=== PATIENT | male | born 1965 | race Caucasian/White ===

== ENCOUNTER 2018-01-29 10:43 | Inpatient (IN) | payer MEDICARE, OTHER ==
[~2018-01-29] VITALS: Ht 185.4 cm; Wt 95.3 kg
[~2018-01-29 10:43] MED LIST: ALBU2.5V11 MC; ALPR2TAB2 PO; BP MED; HYDR1TAB PO; METH40TA PO
--- NOTE | 2018-01-29 10:43 | NUR ---
BB RA 39 FROM DIALYSIS 15 MINS THEN C/O ABD DISTENTION HX ASCITES CHRONIC LIVER DISEASES HEP C. SATING HIGH 80'S ON RA PLACED ON 2 LPM VIA NC NOW SATING 99. PT HAS RCW DIALYSIS CATHETER. RECENT PICC LINE REMOVAL ON JESUS ALBERTO. ON URINARY CATHETER DRAINING YELLOW URINE THRU GRAVITY. C/O OF RT HIP AND RT LEG PAIN HX RECURRENT HIP DISLOCATION.BLE EDEMA +3. PLACED ON MONITOR .GOWNED PT AWATING MD ORDER.
--- NOTE | 2018-01-29 11:18 | NUR ---
IV ACCESS STARTED. FACING CUTTING MACHINE OPERATOR AT FOR BLOOD DRAW.
[2018-01-29 11:26] LABS: BASOPHILS # (AUTO) 0.2 /CMM (0.0-0.2); BASOPHILS % (AUTO) 1.2 % (0.0-2.0); EOSINOPHILS % (AUTO) 17.4 % (0.0-6.0); HEMATOCRIT 34 % (39-51); HEMOGLOBIN 11.6 g/dL (13.5-17.5); LYMPHOCYTES # (AUTO) 1.3 /CMM (0.8-4.8); LYMPHOCYTES % (AUTO) 9.8 % (20.0-44.0); MEAN CORPUSCULAR HGB CONC 34 g/dl (31.0-36.0); MEAN CORPUSCULAR VOLUME 87 fL (80-96); MONOCYTES # (AUTO) 0.8 /CMM (0.1-1.30); MONOCYTES % (AUTO) 6.3 % (2.0-12.0); NEUTROPHILS # (AUTO) 8.8 /CMM (1.8-8.9); NEUTROPHILS % (AUTO) 65.3 % (43.0-81.0); PLATELET COUNT (AUTO) 149 /CMM (150-450); RDW COEFFICIENT OF VARIATION 15.2 (11.5-15.0); RED BLOOD CELL COUNT(AUTO) 3.89 MIL/uL (4.5-6.0); WHITE BLOOD COUNT (AUTO) 13.4 K/uL (4.3-11.0)
[2018-01-29] MEDS ORDERED: POLY17PO4 PO (11:27)
[2018-01-29] MEDS ORDERED: CETI-102 PO (11:27)
[2018-01-29] MEDS ORDERED: FAMO20TA8 PO (11:27)
[2018-01-29] MEDS ORDERED: FOLI0.8T23 PO (11:27)
[2018-01-29] MEDS ORDERED: NICO-676 TD (11:27)
[2018-01-29] MEDS ORDERED: DIPH25CA6 PO (11:27)
[2018-01-29] MEDS ORDERED: EPOE1VIA7 SQ (11:27)
[2018-01-29] MEDS ORDERED: ACET-868 PO (11:27)
[2018-01-29] MEDS ORDERED: MULT-24 PO (11:27)
[2018-01-29] MEDS ORDERED: DOCU-141 PO (11:27)
[2018-01-29] MEDS ORDERED: HYDR4TAB57 PO (11:27)
[2018-01-29] MEDS ORDERED: METH500T PO (11:27)
[2018-01-29] MEDS ORDERED: GABA-532 PO (11:27)
[2018-01-29] MEDS ORDERED: SEVE800T8 PO (11:27)
[2018-01-29] MEDS ORDERED: LACT10SO PO (11:27)
[2018-01-29] MEDS ORDERED: DIPH30CR TP (11:27)
[2018-01-29] MEDS ORDERED: ALPR0.255 PO (11:27)
[2018-01-29] MEDS ORDERED: MAG30ORA PO (11:27)
[2018-01-29 11:33] LABS: CARBON DIOXIDE 27 mmol/L (21-32); CHLORIDE 101 mmol/L (98-107); CREATININE 4.3 mg/dL (0.6-1.3); GLUCOSE 113 mg/dL (74-106); POTASSIUM 4.5 mmol/L (3.5-5.1); SODIUM SERUM 134 mmol/L (136-145); UREA NITROGEN, BLOOD 37 mg/dL (7-18)
[2018-01-29 11:37] LABS: INR 1.24 (0.85-1.15)
[2018-01-29 11:40] LABS: TROPONIN I < 0.017 ng/mL (0.00-0.056)
[2018-01-29 11:46] LABS: ALANINE AMINOTRANSFERASE 23 U/L (12-78); ALBUMIN 2.3 g/dL (3.4-5.0); ALKALINE PHOSPHATASE 128 U/L (46-116); ASPARTATE AMINOTRANSFERASE 36 U/L (15-37); B-TYPE NATRIURETIC PEPTIDE 966 PG/ML (0-125); BILIRUBIN,DIRECT 0.6 mg/dL (0.0-0.2); BILIRUBIN,TOTAL 1.1 mg/dL (0.2-1.0); TOTAL PROTEIN, SERUM 6.8 g/dL (6.4-8.2)
--- NOTE | 2018-01-29 12:06 | NUR ---
DR. Maura MCDANIELS AT BS.
--- NOTE | 2018-01-29 12:28 | NUR ---
REPORT GIVEN TO SARMAD WESTBROOK FOR TELE [id number]
[2018-01-29] MEDS ORDERED: LEVOFLOXACIN 500 MG /D5W 100ML 500 MG/100 ML PIGGYBACK IV ONE (12:30)
[2018-01-29] MEDS ORDERED: VANCOMYCIN 1 GM in IV D5W 250 ML IV ONE (12:30)
[2018-01-29] MEDS ORDERED: LEVOFLOXACIN 500 MG /D5W 100ML 100 ML IV ONE (12:32)
--- NOTE | 2018-01-29 12:40 | NUR ---
PT BROUGHT TO CT.
[2018-01-29] MEDS ORDERED: ONDANSETRON HCL/PF 4 MG/2 ML VIAL IVP PRN (13:00)
[2018-01-29] MEDS ORDERED: MAG HYDROX/AL HYDROX/SIMETH 30 ML UDC PO PRN (13:00)
[2018-01-29] MEDS ORDERED: HYDROMORPHONE INJ 2 MG/ML DISP.SYRIN IV PRN (13:00)
[2018-01-29] MEDS ORDERED: MAGNESIUM HYDROXIDE 30 ML UDC PO PRN (13:00)
[2018-01-29] MEDS ORDERED: ACETAMINOPHEN 325 MG TABLET PO PRN ×2 (13:00→13:30)
[2018-01-29 13:30] VITALS: BP 104/66
[2018-01-29] MEDS ORDERED: EPOETIN ALFA (10,000 UNIT) 10,000 UNIT/ML VIAL SQ SCH (13:30)
[2018-01-29] MEDS ORDERED: diphenhydrAMINE HCL/ZINC ACET CREAM 28.3 GM TUBE TP PRN (13:30)
[2018-01-29] MEDS ORDERED: LACTULOSE 10 G/15 ML UDC (PYXIS) PO PRN (13:30)
--- NOTE | 2018-01-29 13:45 | NUR ---
Tele/RN - Admission Patient awake, A/O x 3, denies abdominal pain, no evidence of resp. distress, on 2 lpm via NC, admitted for Sepsis under Dr. Reyes. Tele shows SR. Saline lock on the left hand is patent, intact, with no complications. Patient refused skin assessment at this time. Reeves catheter in place. All belongings verified and secured in the unit. Patient oriented to the unit and use of call light. All needs anticipated and met. Patient educated on the treatment plan. Admission orders noted and implemented. Fall precautions initiated. Will continue to monitor closely.
[2018-01-29] MEDS ORDERED: VANCOMYCIN 500 MG in IV D5W 100 ML IV PRN (14:00)
[2018-01-29] MEDS ORDERED: FEE PK DOSING 1 MIN EA MC ONE ×2 (14:11→19:54)
--- NOTE | 2018-01-29 16:00 | NUR ---
Tele/RN - Ortho consult Seen and examined by JORGE Gordon for right hip dislocation. Per records from [facility], pt developed septic right PAULINA which required explantation of hardware and implantation of an antibiotic spacer in November 2017. Information relayed to Gini.
[2018-01-29] MEDS: SEVELAMER CARBONATE 800 MG TABLET PO SCH (17:01)
[2018-01-29] MEDS: cetrizine 10 MG TABLET PO SCH (17:01)
[2018-01-29] MEDS: METHOCARBAMOL (500MG) 500 MG TABLET PO SCH (17:01)
[2018-01-29] MEDS: DOCUSATE SODIUM 100 MG CAPSULE PO SCH (17:01)
[2018-01-29] MEDS: ALPRAZOLAM 0.25 MG TABLET PO PRN (18:00)
--- NOTE | 2018-01-29 18:18 | NUR ---
Tele/RN - Notes No new events seen, remain afebrile, Xanax given once for anxiety, denies pain, no c/o SOB. Will endorse to night RN accordingly.
[2018-01-29 20:00] VITALS: BP 104/61
[2018-01-29] MEDS ORDERED: GENTAMICIN IV ONE (20:00)
[2018-01-29] MEDS ORDERED: D5W IV ONE (20:00)
--- NOTE | 2018-01-29 20:00 | NUR ---
tel rn initial notes received Patient awake, A/O x 3, denies abdominal pain, no evidence of resp. distress, c/o r-hip pain, 8/10 and insomia, prn fentanyl iv push and ambien given as ordered, on 2 lpm via NC. Tele shows SR. Saline lock on the left hand is patent, intact, with no complications. Patient refused skin assessment at this time, even after pain meds, insist on body assessment being done after break fast. Reeves catheter in place . Patient oriented to the unit and use of call light. All needs anticipated and met. Patient educated on the treatment plan. Fall precautions initiated. Will continue to monitor closely.
[2018-01-29] MEDS: TRIAMCINOLONE ACETONIDE 0.1% CR 15 GM TUBE TP SCH (21:17)
[2018-01-29] MEDS: GABAPENTIN 100 MG CAPSULE PO SCH (21:17)
[2018-01-29] MEDS: FENTANYL PF 100MCG/2ML AMPUL IV PRN (21:28)
[2018-01-29] MEDS: ZOLPIDEM TARTRATE 5 MG TABLET PO PRN (21:28)
[2018-01-30] VITALS: BP 100/55
--- NOTE | 2018-01-30 06:29 | NUR ---
RN TEL CLOSING NOTES PT AOX3 , ALL NEEDS MET, NON COMPLIANT WITH CARE, PT AWARE HE HAS WOUNDS, BUT STILL REFUSING FOR CARE, CLEANING AND FOR SKIN ASSESSMENT TO BE DONE, RISK AND BENEFIT EXPLAINED, OFFERED THROUGH SHIFT, INSISTS HE WANTS AFTER BREAK FAST. PRN MEDS GIVEN, SCARED OF POSSIBLE R-HIP FX. CALL WR, WILL ENDORSE TO AM SHIFT TO F/U. RECEIVED PT WITH NO SKIN ASSESSMENT D/T PT NOT BEING WILLING TO COMPLY.
--- NOTE | 2018-01-30 07:30 | NUR ---
ALTERNATIVE MEDICINE PRACTITIONER INITIAL NOTES PATIENT RESTING IN BED, AOX3, NO SIGNS OF DISTRESS ON 2L NC, SATURATING WELL, ON TELE MONITORING SR, FC TO GRAVITY, IV L HAND 22G, SL, CLEAN AND PATENT, HD ACCESS R CHEST WALL. PATIENT REFUSES WOUND PICTURES SINCE ADMISSION, BED IN LOW AND LOCKED POSITION CALL LIGHT WITHIN REACH, WILL CONTINUE TO MONITOR.
[2018-01-30 08:00] VITALS: BP 97/57
[2018-01-30] MEDS: NICOTINE PATCH (14MG) 14 MG PATCH.TD24 TD SCH (08:53)
[2018-01-30] MEDS: MULTIVITAMINS,THERAGRAN 1 UDTAB TABLET PO SCH (08:54)
[2018-01-30] MEDS: DOCUSATE SODIUM 100 MG CAPSULE PO SCH ×2 (08:54→17:12)
[2018-01-30] MEDS: PANTOPRAZOLE 40 MG TABLET.DR PO SCH (08:54)
[2018-01-30] MEDS: cetrizine 10 MG TABLET PO SCH ×2 (08:54→17:12)
[2018-01-30] MEDS: METHOCARBAMOL (500MG) 500 MG TABLET PO SCH ×3 (08:54→17:12)
[2018-01-30] MEDS: POLYETHYLENE GLYCOL 3350 17 GM POWD.PACK PO SCH (08:54)
[2018-01-30] MEDS: SEVELAMER CARBONATE 800 MG TABLET PO SCH ×3 (08:54→17:12)
[2018-01-30] MEDS: VIT B CMPLX 3/FA/VIT C/BIOTIN 1 TAB TABLET PO SCH (08:54)
[2018-01-30] MEDS ORDERED: GENTAMICIN 80 MG in IV D5W 50 ML IV PRN (09:00)
[2018-01-30] MEDS ORDERED: FAMOTIDINE (20 MG) 20 MG TABLET PO SCH (09:00)
[2018-01-30] MEDS: TRIAMCINOLONE ACETONIDE 0.1% CR 15 GM TUBE TP SCH ×3 (09:03→17:13)
[2018-01-30 11:25] LABS: BASOPHILS # (AUTO) 0.1 /CMM (0.0-0.2); BASOPHILS % (AUTO) 1.3 % (0.0-2.0); HEMATOCRIT 27 % (39-51); HEMOGLOBIN 9.1 g/dL (13.5-17.5); LYMPHOCYTES # (AUTO) 1.3 /CMM (0.8-4.8); LYMPHOCYTES % (AUTO) 14.9 % (20.0-44.0); MEAN CORPUSCULAR HGB CONC 34 g/dl (31.0-36.0); MEAN CORPUSCULAR VOLUME 87 fL (80-96); MONOCYTES # (AUTO) 0.9 /CMM (0.1-1.30); MONOCYTES % (AUTO) 9.6 % (2.0-12.0); NEUTROPHILS # (AUTO) 3.8 /CMM (1.8-8.9); NEUTROPHILS % (AUTO) 42.7 % (43.0-81.0); PLATELET COUNT (AUTO) 113 /CMM (150-450); RDW COEFFICIENT OF VARIATION 16.2 (11.5-15.0); RED BLOOD CELL COUNT(AUTO) 3.12 MIL/uL (4.5-6.0); WHITE BLOOD COUNT (AUTO) 8.9 K/uL (4.3-11.0)
[2018-01-30 11:28] LABS: EOSINOPHILS % (AUTO) 31.5 % (0.0-6.0)
[2018-01-30 11:39] LABS: CALCIUM, SERUM 7.3 mg/dL (8.5-10.1); CREATININE 4.6 mg/dL (0.6-1.3); PHOSPHORUS 3.6 mg/dL (2.5-4.9); POTASSIUM 4.6 mmol/L (3.5-5.1)
[2018-01-30 12:00] VITALS: BP 99/58
--- NOTE | 2018-01-30 12:00 | NUR ---
FISHING ROD MECHANIC NOTES PATIENT ALLOWED TO TAKE PICTURE OF SACRUM WHEN CLEANING, UNABLE TO TAKE FURTHER PICTURES DUE TO PAIN AND PATIENT REFUSING AND IRRITABLE.
[2018-01-30] MEDS ORDERED: LEVOFLOXACIN 250 MG /D5W 50 ML 250 MG in PREMIX 1 EA IV SCH (13:00)
[2018-01-30 13:14] LABS: EOSINOPHILS % (MANUAL) 38 % (0-4); LYMPHOCYTES % (MANUAL) 12 % (16-48); MONOCYTES % (MANUAL) 2 % (0-11.0); NEUTROPHILS % (MANUAL) 48 (42-76)
--- NOTE | 2018-01-30 13:19 | NUR ---
FIBERGLASS BONDING MACHINE TENDER NOTES PATIENT RECEIVING PARACENTESIS AT THIS TIME, PATIENT SEEN BY DR. MCDANIELS.
--- NOTE | 2018-01-30 14:00 | NUR ---
PARTS PULLER NOTES PER DR MCDANIELS PARACENTESIS FLUID TO BE DISCARDED AND NOT TO BE SENT TO LAB.
[2018-01-30] MEDS: ALPRAZOLAM 0.25 MG TABLET PO PRN ×2 (14:01→21:30)
[2018-01-30 16:00] VITALS: BP_SYST 185; BP_SYST 94; BP_DIAS 57; BP_DIAS 82
--- NOTE | 2018-01-30 18:23 | NUR ---
BULK SEALER OPERATOR END NOTES PATIENT RESTING IN BED, NO SIGNS OF DISTRESS ALL NEEDS ATTENDED TO, WILL ENDORSE TO LOGISTICS LEAD FOR CONTINUITY OF CARE.
--- NOTE | 2018-01-30 19:30 | NUR ---
MS/RN NOTES: RECEIVED PT. IN BED A/O X 3. DENIES ANY C/O CHEST PAIN OR SOB AT PRESENT. PT. IS ON O2 @ 2LPM VIA N/C SAT. 98%. HL ON LH G 22 PATENT AND INTACT W/ NO S/S OF INFECTION/INFILTRATION NOTED. HAS HD CATH ON RIGHT CHEST DRESSING INTACT. PT. REFUSED DIALYSIS TODAY. YEMI. FOR DIALYSIS FOR BRENDA. CALL LIGHT W/REACH. WILL CONTINUE TO MONITOR.
[2018-01-30 20:00] VITALS: BP 98/63
[2018-01-30] MEDS: MUPIROCIN OINT 2% 22 GM TUBE SCH ×2 (21:00→23:29)
[2018-01-30] MEDS: GABAPENTIN 100 MG CAPSULE PO SCH (21:30)
[2018-01-30] MEDS ORDERED: MUPIROCIN OINT 2% 22 GM TUBE ONE (23:08)
[2018-01-31] MEDS: diphenhydrAMINE HCL 25 MG CAPSULE PO PRN (02:58)
[2018-01-31 04:00] VITALS: BP_SYST 94; BP_DIAS 51; BP_DIAS 53
--- NOTE | 2018-01-31 07:12 | NUR ---
RN/MS NOTES: NO ACUTE CHANGES NOTED DURING THIS SHIFT. REPORT GIVEN TO AM NURSE FOR SRIDEVI.
--- NOTE | 2018-01-31 07:35 | NUR ---
MS RN NOTE: RECEIVED PATIENT IN BED, AWAKE, ALERT AND VERBALLY RESPONSIVE. RESPIRATION IS EVEN AND UNLABORED. ON O2 2L/MIN VIA NC SATURATING 96%. BED ON HIGH FOWLERS POSITION WHILE WATCHING TV. ON CONTACT ISOLATION FOR MRSA NARES. (L) HAND IV LINE NOTED PATENT AND INTACT. (R) CHEST HD CATH NOTED INTACT W/ DRESSING. MILLARD CATHETER IN PLACED W/ DARK YELLOW URINE DRAINING TO GRAVITY. PATIENT VERBALIZED THAT HE IS PLANNING TO GO HOME TODAY AND INFORMED HIM THAT ONCE THE DOCTOR MAKE ROUNDS TODAY HIS REQUEST WILL BE RELAYED TO THE DOCTOR. PATIENT VERBALIZED THAT HE DOES NOT WANT TO HAVE HEMODIALYSIS TODAY BECAUSE HE THINKS THAT IT WILL KILL HIM. EDUCATED THE PATIENT ABOUT THE IMPORTANCE OF HD IN ORDER TO REMOVE THE TOXICS ON HIS BODY. PATIENT STATED "LET ME THINK ABOUT IT." BED ALARM AND LOCKED AT ALL TIMES. CALL LIGHT WITHIN REACH. NEEDS ANTICIPATED.
[2018-01-31 08:00] VITALS: BP 97/48
[2018-01-31] MEDS: NICOTINE PATCH (14MG) 14 MG PATCH.TD24 TD SCH (08:10)
[2018-01-31] MEDS: PANTOPRAZOLE 40 MG TABLET.DR PO SCH (08:10)
[2018-01-31] MEDS: DOCUSATE SODIUM 100 MG CAPSULE PO SCH ×2 (08:10→16:04)
[2018-01-31] MEDS: VIT B CMPLX 3/FA/VIT C/BIOTIN 1 TAB TABLET PO SCH (08:10)
[2018-01-31] MEDS: SEVELAMER CARBONATE 800 MG TABLET PO SCH ×3 (08:10→17:21)
[2018-01-31] MEDS: MULTIVITAMINS,THERAGRAN 1 UDTAB TABLET PO SCH (08:11)
[2018-01-31] MEDS: cetrizine 10 MG TABLET PO SCH (08:11)
[2018-01-31] MEDS: METHOCARBAMOL (500MG) 500 MG TABLET PO SCH ×3 (08:11→16:04)
[2018-01-31] MEDS: MUPIROCIN OINT 2% 22 GM TUBE SCH ×2 (08:14→21:16)
[2018-01-31] MEDS: POLYETHYLENE GLYCOL 3350 17 GM POWD.PACK PO SCH (08:15)
[2018-01-31] MEDS: TRIAMCINOLONE ACETONIDE 0.1% CR 15 GM TUBE TP SCH ×3 (08:15→16:05)
[2018-01-31] MEDS: FENTANYL PF 100MCG/2ML AMPUL IV PRN ×2 (08:34→14:00)
--- NOTE | 2018-01-31 08:34 | NUR ---
MS RN NOTE: PATIENT VERBALIZED THAT HE HAS ACHING PAIN ON HIS (B) HIPS AND LOWER BACK 05/29. PATIENT REQUESTED FOR A PAIN MEDICATION. FENTANYL ORDERED WAS GIVEN. BP= 101/60, HR=80, RR= 20, SPO2 W/ O2 2L/MIN VIA NC= 96%.
[2018-01-31] MEDS: ALPRAZOLAM 0.25 MG TABLET PO PRN (13:27)
[2018-01-31 14:00] VITALS: BP 100/55
[2018-01-31] MEDS ORDERED: LACTULOSE 10 G/15 ML UDC (PYXIS) PO PRN (14:00)
--- NOTE | 2018-01-31 15:00 | NUR ---
MS RN NOTE: PATIENT WAS TRIED TO HAVE DIALYSIS TODAY. DR. MCDANIELS WAS PRESENT AT THE BEDSIDE. TORRES, HD NURSE STARTED THE HD AT 1330 AND ENDED AT 1400. PATIENT DID NOT TOLERATE THE HD. LOW BP AND DESATURATING UP TO 88% IN O2 2L/MIN VIA NC. DR. MCDANIELS AWARE ABOUT THE HEMODIALYSIS BEING STOPPED. PER TORRES, PATIENT HAS +2000 ML OF FLUID ON HIS BODY. PER DR. MCDANIELS, HE IS PLANNING TO REMOVE THE (R) CHEST HD CATH BY TOMORROW. WILL ENDORSE IT TO PM SHIFT NURSE.
[2018-01-31 16:00] VITALS: BP 100/55
[2018-01-31] MEDS: LACTOBACILLUS RHAMNOSUS GG 1 EACH CAP.SPRINK PO SCH (16:04)
--- NOTE | 2018-01-31 19:30 | NUR ---
MS/RN NOTES: RECEIVED PT. IN BED A/O X 3. DENIES ANY C/O CHEST PAIN OR SOB AT PRESENT. PT. IS ON O2 @ 2LPM VIA N/C SAT. 98 %. HL ON LH G 22 PATENT AND INTACT W/ NO S/S OF INFECTION/INFILTRATION NOTED. HAS HD CATH ON RIGHT CHEST DRESSING INTACT. CALL LIGHT W/REACH. WILL CONTINUE TO MONITOR.
--- NOTE | 2018-01-31 19:50 | NUR ---
MS RN NOTE: PATIENT IN BED, AWAKE AND ABLE TO VERBALIZE HIS NEEDS. ON STABLE CONDITION AT THIS TIME. DENIED PAIN. REPORT GIVEN TO PM SHIFT NURSE FOR CONTINUITY OF CARE.
[2018-01-31 20:00] VITALS: BP 96/60
[2018-01-31] MEDS: GABAPENTIN 100 MG CAPSULE PO SCH (21:16)
[2018-02-01 04:00] VITALS: BP 119/53
[2018-02-01 08:00] VITALS: BP 98/58
[2018-02-01] MEDS: SEVELAMER CARBONATE 800 MG TABLET PO SCH ×3 (08:20→18:00)
[2018-02-01] MEDS: METHOCARBAMOL (500MG) 500 MG TABLET PO SCH ×3 (08:20→16:46)
[2018-02-01] MEDS: DOCUSATE SODIUM 100 MG CAPSULE PO SCH ×2 (08:20→16:42)
[2018-02-01] MEDS: VIT B CMPLX 3/FA/VIT C/BIOTIN 1 TAB TABLET PO SCH (08:20)
[2018-02-01] MEDS: LACTOBACILLUS RHAMNOSUS GG 1 EACH CAP.SPRINK PO SCH ×2 (08:20→16:46)
[2018-02-01] MEDS: POLYETHYLENE GLYCOL 3350 17 GM POWD.PACK PO SCH (08:21)
[2018-02-01] MEDS: PANTOPRAZOLE 40 MG TABLET.DR PO SCH (08:21)
[2018-02-01] MEDS: TRIAMCINOLONE ACETONIDE 0.1% CR 15 GM TUBE TP SCH ×3 (09:00→16:46)
[2018-02-01] MEDS: MULTIVITAMINS,THERAGRAN 1 UDTAB TABLET PO SCH (09:42)
[2018-02-01] MEDS: MUPIROCIN OINT 2% 22 GM TUBE SCH ×2 (09:42→21:48)
[2018-02-01] MEDS: NICOTINE PATCH (14MG) 14 MG PATCH.TD24 TD SCH (09:42)
[2018-02-01 11:54] LABS: BASOPHILS % (AUTO) 0.6 % (0.0-2.0); HEMATOCRIT 28 % (39-51); LYMPHOCYTES % (AUTO) 13.9 % (20.0-44.0); MEAN CORPUSCULAR HGB CONC 33 g/dl (31.0-36.0); MEAN CORPUSCULAR VOLUME 87 fL (80-96); MONOCYTES # (AUTO) 0.5 /CMM (0.1-1.30); MONOCYTES % (AUTO) 7.5 % (2.0-12.0); NEUTROPHILS # (AUTO) 3.4 /CMM (1.8-8.9); NEUTROPHILS % (AUTO) 47.9 % (43.0-81.0); PLATELET COUNT (AUTO) 133 /CMM (150-450); RDW COEFFICIENT OF VARIATION 15.8 (11.5-15.0); RED BLOOD CELL COUNT(AUTO) 3.17 MIL/uL (4.5-6.0); WHITE BLOOD COUNT (AUTO) 7.1 K/uL (4.3-11.0)
[2018-02-01 11:58] LABS: EOSINOPHILS % (AUTO) 30.1 % (0.0-6.0)
[2018-02-01 12:00] VITALS: BP 98/58
[2018-02-01 12:15] LABS: CALCIUM, SERUM 7.4 mg/dL (8.5-10.1); CREATININE 5.1 mg/dL (0.6-1.3); MAGNESIUM 2.4 mg/dL (1.8-2.4); PHOSPHORUS 4.6 mg/dL (2.5-4.9)
[2018-02-01 12:25] LABS: LYMPHOCYTES % (MANUAL) 16 % (16-48); NEUTROPHILS % (MANUAL) 49 (42-76)
[2018-02-01 12:26] LABS: EOSINOPHILS % (MANUAL) 29 % (0-4); MONOCYTES % (MANUAL) 6 % (0-11.0)
[2018-02-01] MEDS ORDERED: VANCOMYCIN 1 GM in IV D5W 250 ML IV ONE (13:30)
[2018-02-01 14:00] VITALS: BP 103/66
--- NOTE | 2018-02-01 14:10 | NUR ---
discontinued hemodialysis catheter at bedside.Patient in stable condition.No s/s of distress.breathing even and unlabored will continue to monitor for changes.
[2018-02-01 16:00] VITALS: BP 95/62
--- NOTE | 2018-02-01 19:25 | NUR ---
Pt. in stable condition no s/s of distress.no sob noted.All M.D orders noted and carried out.will continue to monitor for changes.
--- NOTE | 2018-02-01 19:30 | NUR ---
M/S INVESTMENT TRADER NOTE: RECEIVED PATIENT AOX3 WITH PERIODS OF FORGETFULNESS, SPEECH CLEAR, RESPONDING TO QUESTIONS APPROPRIATELY, LETHARGIC, ON 2L O2 TOLERATING WELL, DENIES ANY RESPIRATORY OR CARDIAC DISTRESS. REPORTING GENERALIZED PAIN GIVEN PRN TYLENOL 650MG PO. NO IV IN PLACE PATIENT PULLED IT OUT, F/C DRAINING TO GRAVITY YELLOW URINE. SAFETY MAINTAINED AT ALL TIMES, INSTRUCTED ADVERTISING SALES MANAGER LIGHT USE, PT VERBALIZED UNDERSTANDING, BED IN LOW LOCKED POSITION. WILL CONTINUE TO MONITOR FOR ANY CHANGES IN CONDITION.
[2018-02-01 20:00] VITALS: BP 110/77
[2018-02-01] MEDS: GABAPENTIN 100 MG CAPSULE PO SCH (21:47)
[2018-02-01] MEDS: diphenhydrAMINE HCL 25 MG CAPSULE PO PRN (21:53)
[2018-02-02 04:00] VITALS: BP 115/78
--- NOTE | 2018-02-02 07:45 | NUR ---
MS RN NOTES PATIENT C/O SLIGHT SHAKINESS, ANXIOUS AND AGITATED. CHECKED BLOOD SUGAR. 105. ALL NEEDS IN REACH AND MET. PATIENT NOT WANTING ATIVAN AT THIS TIME. EDUCATED ON WAYS TO CALM SELF. EDUCATED AND UPDATED ON CARE PLAN.
[2018-02-02 08:00] VITALS: BP 110/71
[2018-02-02] MEDS: LACTOBACILLUS RHAMNOSUS GG 1 EACH CAP.SPRINK PO SCH ×2 (08:44→16:08)
[2018-02-02] MEDS: MULTIVITAMINS,THERAGRAN 1 UDTAB TABLET PO SCH (08:44)
[2018-02-02] MEDS: METHOCARBAMOL (500MG) 500 MG TABLET PO SCH ×3 (08:44→16:08)
[2018-02-02] MEDS: SEVELAMER CARBONATE 800 MG TABLET PO SCH ×3 (08:44→18:01)
[2018-02-02] MEDS: PANTOPRAZOLE 40 MG TABLET.DR PO SCH (08:44)
[2018-02-02] MEDS: NICOTINE PATCH (14MG) 14 MG PATCH.TD24 TD SCH (08:44)
[2018-02-02] MEDS: VIT B CMPLX 3/FA/VIT C/BIOTIN 1 TAB TABLET PO SCH (08:44)
[2018-02-02] MEDS: DOCUSATE SODIUM 100 MG CAPSULE PO SCH ×2 (08:44→16:08)
[2018-02-02] MEDS: POLYETHYLENE GLYCOL 3350 17 GM POWD.PACK PO SCH (08:44)
[2018-02-02] MEDS: MUPIROCIN OINT 2% 22 GM TUBE SCH ×2 (08:47→21:46)
[2018-02-02] MEDS: TRIAMCINOLONE ACETONIDE 0.1% CR 15 GM TUBE TP SCH ×3 (08:47→16:17)
--- NOTE | 2018-02-02 09:13 | NUR ---
MS RN NOTES EDUCATED PATIENT ON COPD AND OXYGEN USE. AT 100% AND NASAL CANNULA NOT NEEDED. WILL CHECK ROOM AIR
--- NOTE | 2018-02-02 09:30 | NUR ---
MS RN NOTES PATIENT ROOM AIR 97%
--- NOTE | 2018-02-02 11:19 | NUR ---
MS RN NOTES PATIENT IS ALLOWING HEAD TO TOE ASSESSMENT NOW AND SKIN CARE. ISHMAEL WOUND RN AT BEDSIDE. PATIENT NOTED TO HAVE UNEQUAL PUPILS RIGHT 1MM AND LEFT 5MM. PATIENT IS HAVING UNCONTROLLABLE SHAKING TO BUE. PAGED TUYET BARKER AND HE IS AWARE. NO NEW ORDERS AND WILL SEE PATIENT.
[2018-02-02] MEDS: ALPRAZOLAM 0.25 MG TABLET PO PRN ×2 (11:34→21:55)
--- NOTE | 2018-02-02 11:45 | NUR ---
MS WESTBROOK NOTES LOKI BARKER AT BEDSIDE. UPDATED ON PATIENT CONDITION. Addendum: 02/02/18 at 1324 by NAGI FREED RN AWARE OF PUPILS, SHAKINESS, AND ABDOMEN BECOMING MORE DISTENDED PER PATIENT. ABDOMEN SOFT
--- NOTE | 2018-02-02 11:53 | NUR ---
MS RN NOTES CALLED LAB SPOKE TO YENY TO HAVE BLOOD DRAW ATTEMPTED AGAIN.
--- NOTE | 2018-02-02 12:01 | NUR ---
MS RN NOTES PATIENT PRESENTS WITH GENERALIZED BODY PEELING, REDNESS NOTED.
--- NOTE | 2018-02-02 12:16 | NUR ---
WOUND CARE CONSULT: PT PRESENTS WITH MULTIPLE SKIN ISSUES AND WOUNDS, PRESENT ON ADMISSION INCLUDING PEELING SKIN TO FACE AND ENTIRE BODY WITH WEEPING EDEMA OF ARMS, MULTIPLE DRY SCABS TO FACE AND EARS, STAGE 2 ULCERS TO SACRUM, BUTTOCKS AND RT POSTERIOR THIGH. STAGE 2 ULCER NOTED TO RT LATERAL LOWER LEG. REDNESS NOTED TO ARMS. DR RESTREPO IN TO EXAMINE PT. ALL SKIN PROTECTION AND WOUND RECOMMENDATIONS DISCUSSED WITH NURSING STAFF. PT ON CAITLYN ISOFLEX LOW AIRLOSS BED. WILL SEE PRN. CURRENT RUBINA SCORE IS 13. MD/DNP IN AGREEMENT WITH PLAN OF CARE. Addendum: 02/02/18 at 1220 by ISHMAEL LLANES WNDNU Amended: Links added.
[2018-02-02] MEDS: Z GUARD REMEDY 2 OZ OINT TP SCH (12:56)
[2018-02-02 13:11] LABS: ALBUMIN 2.1 g/dL (3.4-5.0); BILIRUBIN,TOTAL 1.2 mg/dL (0.2-1.0); CREATININE 5.5 mg/dL (0.6-1.3); POTASSIUM 5.2 mmol/L (3.5-5.1); TOTAL PROTEIN, SERUM 6.4 g/dL (6.4-8.2)
[2018-02-02 13:19] LABS: BASOPHILS # (AUTO) 0.1 /CMM (0.0-0.2); BASOPHILS % (AUTO) 1.1 % (0.0-2.0); HEMATOCRIT 32 % (39-51); HEMOGLOBIN 10.5 g/dL (13.5-17.5); LYMPHOCYTES # (AUTO) 1.2 /CMM (0.8-4.8); LYMPHOCYTES % (AUTO) 12.7 % (20.0-44.0); MEAN CORPUSCULAR HGB CONC 33 g/dl (31.0-36.0); MEAN CORPUSCULAR VOLUME 88 fL (80-96); MONOCYTES # (AUTO) 0.5 /CMM (0.1-1.30); MONOCYTES % (AUTO) 5.8 % (2.0-12.0); NEUTROPHILS # (AUTO) 5.2 /CMM (1.8-8.9); NEUTROPHILS % (AUTO) 55.2 % (43.0-81.0); PLATELET COUNT (AUTO) 190 /CMM (150-450); RDW COEFFICIENT OF VARIATION 15.4 (11.5-15.0); RED BLOOD CELL COUNT(AUTO) 3.64 MIL/uL (4.5-6.0); WHITE BLOOD COUNT (AUTO) 9.4 K/uL (4.3-11.0)
--- NOTE | 2018-02-02 14:00 | NUR ---
MS RN NOTES PATIENT ALLOWING TURNING AT THIS TIME.
[2018-02-02 14:13] LABS: EOSINOPHILS % (AUTO) 25.2 % (0.0-6.0)
[2018-02-02 14:15] LABS: BAND % (MANUAL) 2 % (0.0-5.0); EOSINOPHILS % (MANUAL) 34 % (0-4); LYMPHOCYTES % (MANUAL) 5 % (16-48); MONOCYTES % (MANUAL) 1 % (0-11.0); NEUTROPHILS % (MANUAL) 58 (42-76)
[2018-02-02 16:00] VITALS: BP 116/77
[2018-02-02] MEDS: HYDROCODONE/APAP 10/325MG 1 EA TABLET PO PRN ×2 (16:09→23:15)
--- NOTE | 2018-02-02 18:00 | NUR ---
MS RN NOTES PATIENT WANTS TO STAY ON SACRUM. HAD A BM. SKIN CARE COMPLETED. WOUND CARE COMPLETED. PATIENT EDUCATED ON SKIN CARE AND OFFLOADING
--- NOTE | 2018-02-02 18:32 | NUR ---
MS RN NOTES HARLEY AT BEDSIDE. UPDATED ON PATIENT CONDITION. NO HD ACCESS AT THIS TIME. NO IV ACCESS AND UNABLE TO GIVE ANY IV MEDICATIONS OR ANTIBIOTICS. NO NEW ORDERS. PER HARLEY SHE WILL UPDATE ORDERS.
--- NOTE | 2018-02-02 19:23 | NUR ---
MS RN CLOSING PATIENT STABLE. ALL NEEDS MET. SAFETY PRECAUTIONS IN PLACE. NO IV ACCESS OK PER MD AND AWARE. PATIENT CARE ENDORSED TO RN FOR SRIDEVI. SKIN CARE ORDERED/PRN. MORE Z GUARD ORDERED FROM PHARMACY.
--- NOTE | 2018-02-02 19:40 | NUR ---
MS/RN NOTES RECEIVED PT. LYING DOWN IN BED. PT. IS AWAKE, ALERT AND ORIENTED X3 WITH PERIODS OF FORGETFULNESS NOTED. BREATHING EVEN AND UNLABORED ON ROOM AIR. NO SOB, RESPIRATORY DISTRESS OR COMPLAINTS OF PAIN NOTED AT THIS TIME. PT. WITH NO IV ACCESS AT THIS TIME, PER DAYSHIFT NURSE AWARE. PT. WITH MILLARD CATHETER PRESENT, PATENT AND INTACT DRAINING SOPHIE COLORED URINE. BED LOCKED AND IN LOWEST POSITION, SIDE RAILS UP X3, BED ALARM ON, CALL LIGHT WITHIN REACH, WILL CONTINUE TO MONITOR.
[2018-02-02 20:00] VITALS: BP 132/84
[2018-02-02] MEDS: GABAPENTIN 100 MG CAPSULE PO SCH (21:45)
[2018-02-02] MEDS: DOXYCYCLINE HYCLATE (100 MG) 100 MG TABLET PO SCH (21:45)
--- NOTE | 2018-02-03 02:00 | NUR ---
MS/RN NOTES GAVE REPORT TO PIETRO BAILEY AND TRANSFERRED PT. TO [facility] ROOM 329-1. PT. IS AWAKE, ALERT AND ORIENTED X3. BREATHING EVEN AND UNLABORED ON ROOM AIR. NO SOB, RESPIRATORY DISTRESS OR COMPLAINTS OF PAIN NOTED AT THIS TIME. PT. REMAINS WITH NO IV ACCESS AT THIS TIME, MD AWARE. PT. WITH MILLARD CATHETER PRESENT, PATENT AND INTACT. ENDORSED PT. TO PIETRO BAILEY FOR CONTINUITY OF CARE.
--- NOTE | 2018-02-03 02:05 | NUR ---
SHEET COMBINING OPERATOR NOTES Pt ARRIVED ON FLOOR VIA BED. TRANSFER FROM [facility] EU[facility]. REPORT RECEIVED FROM PIETRO KAUR. Pt IS AWAKE & ALERT. NO S/S OF ACUTE DISTRESS OR SOB NOTED. Pt IS A/OX3, VERBAL, ABLE TO MAKE NEEDS KNOWN. DUE TO TRANSFERRING Pt WAS UNABLE TO RECEIVE HIS AMBIEN ON TIME BEFORE 0200. INFORMED DRAY DRIVER AND SAID IT WAS OK TO GIVE NOW. Pt HAS NO IV ACCESS, PER REPORT Pt HAS BEEN REFUSING IV ACCESS, MDs ARE AWARE. IS TAKING PO ABX MEDS INSTEAD. Pt IS ON MRSA NARES ISO. SAFETY MEASURES IN PLACE. BED LOW, LOCKED, HOB ELEVATED, SIDE RAILS UP, CALL LIGHT AND BEDSIDE TABLE WITHIN REACH. WILL CONTINUE TO MONITOR Pt THROUGHOUT THE NIGHT FOR SAFETY.
[2018-02-03 02:10] VITALS: BP 111/75
[2018-02-03] MEDS: ZOLPIDEM TARTRATE 5 MG TABLET PO PRN ×2 (02:13→23:42)
--- NOTE | 2018-02-03 06:55 | NUR ---
RN CLOSING NOTES NO SIGNIFICANT CHANGES IN Pt's CONDITION DURING SHIFT. Pt REMAINS IN STABLE CONDITION AT THIS TIME. NO S/S OF ACUTE DISTRESS OR SOB NOTED DURING THE NIGHT. ALL NEEDS MET AND ATTENDED TO. SAFETY MEASURES IN PLACE. WILL ENDORSE TO DAYSHIFT RN FOR Pt's SRIDEVI.
[2018-02-03 07:20] LABS: CALCIUM, SERUM 7.4 mg/dL (8.5-10.1); CREATININE 5.4 mg/dL (0.6-1.3); POTASSIUM 4.7 mmol/L (3.5-5.1)
--- NOTE | 2018-02-03 07:45 | NUR ---
M/S RN - Assessment Patient awake, A/O x 3, denies abdominal pain, no evidence of resp. distress, tolerating room air. Patient with no IV line, Md aware. Reeves catheter in place. Will do wound treatment as ordered. All needs anticipated and met. Contact isolation maintained for MRSA nares. Awaiting ortho eval for recurrent right hip dislocation. Will continue to monitor closely.
[2018-02-03] MEDS: PANTOPRAZOLE 40 MG TABLET.DR PO SCH (07:51)
[2018-02-03] MEDS: ALPRAZOLAM 0.25 MG TABLET PO PRN ×2 (07:51→21:28)
[2018-02-03] MEDS: SEVELAMER CARBONATE 800 MG TABLET PO SCH ×3 (07:54→17:21)
[2018-02-03 08:00] VITALS: BP 111/68
[2018-02-03] MEDS: METHOCARBAMOL (500MG) 500 MG TABLET PO SCH ×3 (08:51→17:21)
[2018-02-03] MEDS: DOCUSATE SODIUM 100 MG CAPSULE PO SCH ×2 (08:51→17:21)
[2018-02-03] MEDS: DOXYCYCLINE HYCLATE (100 MG) 100 MG TABLET PO SCH ×2 (08:51→21:28)
[2018-02-03] MEDS: NICOTINE PATCH (14MG) 14 MG PATCH.TD24 TD SCH (08:51)
[2018-02-03] MEDS: POLYETHYLENE GLYCOL 3350 17 GM POWD.PACK PO SCH (08:51)
[2018-02-03] MEDS: LACTOBACILLUS RHAMNOSUS GG 1 EACH CAP.SPRINK PO SCH ×2 (08:51→17:21)
[2018-02-03] MEDS: VIT B CMPLX 3/FA/VIT C/BIOTIN 1 TAB TABLET PO SCH (08:51)
[2018-02-03] MEDS: MULTIVITAMINS,THERAGRAN 1 UDTAB TABLET PO SCH (08:52)
[2018-02-03] MEDS: TRIAMCINOLONE ACETONIDE 0.1% CR 15 GM TUBE TP SCH ×3 (09:00→17:22)
[2018-02-03] MEDS: Z GUARD REMEDY 2 OZ OINT TP PRN ×3 (09:00→09:17)
[2018-02-03] MEDS: MUPIROCIN OINT 2% 22 GM TUBE SCH ×2 (09:09→21:39)
[2018-02-03] MEDS: Z GUARD REMEDY 2 OZ OINT TP SCH (09:19)
[2018-02-03] MEDS: HYDROCODONE/APAP 10/325MG 1 EA TABLET PO PRN (10:23)
--- NOTE | 2018-02-03 11:00 | NUR ---
M/S RN - Ortho eval Seen and evaluated by JORGE Rubalcava. Patient agreeable to surgery of his right hip dislocation.
[2018-02-03 15:48] VITALS: BP 113/71
--- NOTE | 2018-02-03 19:29 | NUR ---
M/S RN - Notes No new events seen. Telephone orders obtained from JORGE Rubalcava to place patient NPO after midnight, obtain consent for right hip closed reduction possible open. Patient scheduled tomorrow, 02/04/18 at 07:00, endorsed to night RN accordingly.
--- NOTE | 2018-02-03 19:55 | NUR ---
RN OPENING NOTES RECEIVED REPORT FROM [facility] PIETRO BAÑUELOS. FOUND Pt AWAKE, RESTING IN BED. Pt IS A/OX3, FORGETFUL AT TIMES, BUT IS VERBAL, AND ABLE TO MAKE NEEDS KNOWN. NO S/S OF ACUTE DISTRESS OR SOB NOTED. MILLARD CATHETER IN PLACE. Pt DOES NOT HAVE IV ACCESS, HAS BEEN REFUSING TO GET ONE. BUT NOW THAT Pt IS GOING TO HAVE SURGERY TOMORROW MORNING, Pt IS AGREEING TO HAVE AN IV PLACED. WILL TRY TO PLACE A NEW IV TONIGHT. Pt IS AWARE HE MUST BE NPO AFTER MN STARTING TONIGHT. Pt IS SCHEDULED TO HAVE A R HIP CLOSED REDUCTION POSSIBLE OPEN SX AT 0700. WILL GET CONSENT TO SIGN. SAFETY MEASURES IN PLACE. BED LOW, LOCKED, HOB ELEVATED, SIDE RAILS UP, CALL LIGHT AND BEDSIDE TABLE WITHIN REACH. WILL CONTINUE TO MONITOR Pt THROUGHOUT THE NIGHT FOR SAFETY.
[2018-02-03 20:00] VITALS: BP 125/82
[2018-02-03] MEDS: GABAPENTIN 100 MG CAPSULE PO SCH (21:28)
[2018-02-03 21:48] VITALS: BP 125/82
--- NOTE | 2018-02-03 22:00 | NUR ---
RN NOTES CONSENT SIGNED BY Pt FOR RIGHT HIP REDUCTION.
--- NOTE | 2018-02-03 23:45 | NUR ---
IV ACCESS STARTED ON LAC #22G, SL
--- NOTE | 2018-02-04 06:25 | NUR ---
RN NOTES LAB HAD TROUBLE GETTING BLOOD THIS AM, WILL TRY AGAIN LATER.
--- NOTE | 2018-02-04 06:36 | NUR ---
RN CLOSING NOTES NO SIGNIFICANT CHANGES IN Pt's CONDITION DURING SHIFT. Pt REMAINS STABLE AT THIS TIME. NO S/S OF ACUTE DISTRESS OR SOB NOTED DURING THE NIGHT. ALL NEEDS MET AND ATTENDED TO. HAS BEEN NPO SINCE CHENG HERNANDEZ. SCHEDULED TO HAVE R HIP CLOSED REDUCTION SX. CONSENT SIGNED AND CHECKLIST DONE. SAFETY MEASURES IN PLACE. WILL ENDORSE TO DAYSHIFT RN FOR Pt's SRIDEVI.
[2018-02-04] MEDS ORDERED: ANESTHESIA TRAY IN PYXIS 1 EA TRAY MC ONE (06:57)
--- NOTE | 2018-02-04 07:05 | NUR ---
RN NOTES Pt TAKEN DOWN TO OR FOR HIS PROCEDURE
--- NOTE | 2018-02-04 07:34 | NUR ---
REPORT RECEIVED AT THE BEDSIDE. PATIENT IS ALREADY IN OR FOR PROCEDURE. WILL MONITOR ON RETURN.
[2018-02-04] MEDS ORDERED: FENTANYL PF 100MCG/2ML AMPUL ONE (08:26)
[2018-02-04] MEDS: METHOCARBAMOL (500MG) 500 MG TABLET PO SCH ×5 (09:00→17:03)
[2018-02-04] MEDS: POLYETHYLENE GLYCOL 3350 17 GM POWD.PACK PO SCH (09:28)
[2018-02-04] MEDS: NICOTINE PATCH (14MG) 14 MG PATCH.TD24 TD SCH (09:29)
[2018-02-04] MEDS: DOCUSATE SODIUM 100 MG CAPSULE PO SCH ×2 (09:29→17:02)
[2018-02-04] MEDS: VIT B CMPLX 3/FA/VIT C/BIOTIN 1 TAB TABLET PO SCH (09:29)
[2018-02-04] MEDS: PANTOPRAZOLE 40 MG TABLET.DR PO SCH (09:29)
[2018-02-04] MEDS: SEVELAMER CARBONATE 800 MG TABLET PO SCH ×3 (09:29→17:03)
[2018-02-04] MEDS: MULTIVITAMINS,THERAGRAN 1 UDTAB TABLET PO SCH (09:29)
[2018-02-04] MEDS: LACTOBACILLUS RHAMNOSUS GG 1 EACH CAP.SPRINK PO SCH ×2 (09:29→17:03)
[2018-02-04] MEDS: DOXYCYCLINE HYCLATE (100 MG) 100 MG TABLET PO SCH ×2 (09:29→20:04)
[2018-02-04] MEDS: ALPRAZOLAM 0.25 MG TABLET PO PRN (09:29)
[2018-02-04] MEDS: Z GUARD REMEDY 2 OZ OINT TP SCH (09:30)
--- NOTE | 2018-02-04 09:30 | NUR ---
PT RETURNED FROM SURGERY. VITALS CHECKED AND RECORDED. PATIENT STATES HE IS IN PAIN, WILL FOLLOW UP WITH ORAL MEDICATION. ORDERS FROM DR BLANKENSHIP PLACED AND CHECKED. BED IN A LOW POSITION, CALL LIGHT WITHIN PATIENT REACH. WILL MONITOR.
[2018-02-04 09:36] LABS: LYMPHOCYTES # (AUTO) 1.1 /CMM (0.8-4.8)
[2018-02-04 09:37] LABS: BASOPHILS % (AUTO) 0.2 % (0.0-2.0); EOSINOPHILS % (AUTO) 23.8 % (0.0-6.0); HEMATOCRIT 36 % (39-51); HEMOGLOBIN 12.1 g/dL (13.5-17.5); LYMPHOCYTES % (AUTO) 11.1 % (20.0-44.0); MEAN CORPUSCULAR HGB CONC 34 g/dl (31.0-36.0); MEAN CORPUSCULAR VOLUME 86 fL (80-96); MONOCYTES # (AUTO) 0.5 /CMM (0.1-1.30); MONOCYTES % (AUTO) 5.2 % (2.0-12.0); NEUTROPHILS # (AUTO) 5.6 /CMM (1.8-8.9); NEUTROPHILS % (AUTO) 59.7 % (43.0-81.0); PLATELET COUNT (AUTO) 174 /CMM (150-450); RDW COEFFICIENT OF VARIATION 14.2 (11.5-15.0); RED BLOOD CELL COUNT(AUTO) 4.21 MIL/uL (4.5-6.0); WHITE BLOOD COUNT (AUTO) 9.5 K/uL (4.3-11.0)
[2018-02-04] MEDS: MUPIROCIN OINT 2% 22 GM TUBE SCH ×2 (09:39→20:05)
[2018-02-04] MEDS: TRIAMCINOLONE ACETONIDE 0.1% CR 15 GM TUBE TP SCH ×3 (09:40→17:03)
[2018-02-04 10:02] LABS: CALCIUM, SERUM 7.6 mg/dL (8.5-10.1); CREATININE 5.2 mg/dL (0.6-1.3); POTASSIUM 5.1 mmol/L (3.5-5.1)
--- NOTE | 2018-02-04 12:11 | NUR ---
PT REFUSING ROBAXIN. STATES HE DID NOT HAVE MUSCLE SPASM UNTIL STARTING TO TAKE THIS MEDICATION. INFORMED. Addendum: 02/04/18 at 1722 by LUIS PACE RN PT CHANGED MIND AND TOOK MEDICATION
[2018-02-04] MEDS: HYDROCODONE/APAP 10/325MG 1 EA TABLET PO PRN ×2 (12:37→18:29)
--- NOTE | 2018-02-04 14:10 | NUR ---
PT REFUSED TURNING AT THIS TIME. EXPLAINED THE IMPORTANCE OF FREQUENT REPOSITIONING, BUT PATIENT STILL REFUSING. WILL ATTEMPT AGAIN.
[2018-02-04 16:00] VITALS: BP 109/69
--- NOTE | 2018-02-04 16:09 | NUR ---
PT REFUSED TURNING AND REPOSITIONING AGAIN. AGAIN EXPLAINED IMPORTANCE OF FREQUENT TURNING TO PATIENT, BUT REFUSES. STATES "I'M FINE." WILL ATTEMPT AGAIN LATER.
--- NOTE | 2018-02-04 17:20 | NUR ---
CONSENT FOR PERMACATH PLACEMENT OBTAINED.
--- NOTE | 2018-02-04 17:55 | NUR ---
PT IS STILL REFUSING TO TURN. STATES "I WILL LET YOU KNOW WHEN I AM READY. LEAVE ME ALONE." EXPLAINED AGAIN THE RISKS AND BENEFITS OF FREQUENT TURNING.
--- NOTE | 2018-02-04 19:30 | NUR ---
MS RN NOTES: RECEIVED PT IN BED IN SEMI-FARR'S POSITION. PT IS AWAKE AT THIS TIME. INFORMED PT THAT HE IS TO BE NPO POST MIDNIGHT FOR PROCEDURE TOMORROW. PT HAS IV IN TACT. CURRENTLY S/L. PT HAS MILLARD CATH AND IS ATTACHED TO DRAINAGE BAG WITH URINE DRAINING. CALL LIGHT WITHIN PT'S REACH. BED KEPT IN LOW, LOCKED POSITION, AND SIDE RAILS X 2UP. WILL CONTINUE TO MONITOR PT.
[2018-02-04 20:00] VITALS: BP 119/75
[2018-02-04] MEDS: GABAPENTIN 100 MG CAPSULE PO SCH (21:14)
[2018-02-04] MEDS: ZOLPIDEM TARTRATE 5 MG TABLET PO PRN (21:14)
--- NOTE | 2018-02-05 05:38 | NUR ---
MS WESTBROOK NOTES: PT REFUSING TO BE TURNED AT THIS TIME. PT STATES THAT HE IS COMFORTABLE THE WAY HE IS. Addendum: 02/05/18 at 0539 by REBEKAH COLEMAN RN EXPLAINED TO THE PT RISKS AND BENEFITS BUT PT STILL REFUSING.
[2018-02-05 06:01] VITALS: BP 121/72
[2018-02-05] MEDS ORDERED: ANESTHESIA TRAY IN PYXIS 1 EA TRAY MC ONE (06:22)
[2018-02-05] MEDS ORDERED: LIDOCAINE 1% INJ 50 ML MDV IJ ONE (06:23)
[2018-02-05] MEDS ORDERED: HEPARIN SODIUM, PORCINE 1,000 UNIT/ML VIAL ONE (06:23)
--- NOTE | 2018-02-05 06:35 | NUR ---
MS RN CLOSING NOTES: ALL NEEDS WERE ATTENDED AND ANTICIPATED FOR. PT HAS BEEN NPO SINCE MIDNIGHT. PT'S IV REMAINS INTACT. PT TAKEN DOWN TO OR FOR PROCEDURE. WILL ENDORSE TO AM NURSE FOR SRIDEVI.
--- NOTE | 2018-02-05 06:38 | NUR ---
MS RN NOTES: PT TAKEN DOWN TO OR VIA BED FOR HD CATH PLACEMENT PROCEDURE.
[2018-02-05] MEDS ORDERED: FENTANYL PF 100MCG/2ML AMPUL ONE ×2 (06:59→07:24)
[2018-02-05] MEDS ORDERED: MIDAZOLAM HCL 2 MG/2ML VIAL ONE ×2 (07:00→07:24)
[2018-02-05] MEDS ORDERED: SUCCINYLCHOLINE CHLORIDE 20 MG/ML VIAL ONE (07:00)
--- NOTE | 2018-02-05 07:54 | NUR ---
RN OPENING NOTE RECEIVED PT REPORT. PT IS CURRENTLY IN OR FOR PLACEMENT OF HD CATH. PER SURVEILLANCE SUPERVISOR REPORT PT IS S/P RIGHT SIDE PARACENTESIS ON 01/30. WILL CONTINUE TO MONITOR UPON RETURN FROM OR.
[2018-02-05] MEDS: POLYETHYLENE GLYCOL 3350 17 GM POWD.PACK PO SCH (08:28)
[2018-02-05] MEDS: PANTOPRAZOLE 40 MG TABLET.DR PO SCH (08:29)
[2018-02-05] MEDS: DOXYCYCLINE HYCLATE (100 MG) 100 MG TABLET PO SCH ×2 (08:29→21:34)
[2018-02-05] MEDS: METHOCARBAMOL (500MG) 500 MG TABLET PO SCH ×3 (08:29→17:31)
[2018-02-05] MEDS: VIT B CMPLX 3/FA/VIT C/BIOTIN 1 TAB TABLET PO SCH (08:29)
[2018-02-05] MEDS: LACTOBACILLUS RHAMNOSUS GG 1 EACH CAP.SPRINK PO SCH ×2 (08:29→17:31)
[2018-02-05] MEDS: NICOTINE PATCH (14MG) 14 MG PATCH.TD24 TD SCH (08:29)
[2018-02-05] MEDS: DOCUSATE SODIUM 100 MG CAPSULE PO SCH ×2 (08:29→17:31)
[2018-02-05] MEDS: SEVELAMER CARBONATE 800 MG TABLET PO SCH ×3 (08:29→17:31)
[2018-02-05] MEDS: TRIAMCINOLONE ACETONIDE 0.1% CR 15 GM TUBE TP SCH ×3 (08:30→17:36)
[2018-02-05] MEDS: MUPIROCIN OINT 2% 22 GM TUBE SCH ×2 (08:31→21:36)
[2018-02-05] MEDS: Z GUARD REMEDY 2 OZ OINT TP SCH (08:31)
[2018-02-05] MEDS: MULTIVITAMINS,THERAGRAN 1 UDTAB TABLET PO SCH (08:33)
[2018-02-05 08:37] VITALS: BP 101/68
--- NOTE | 2018-02-05 09:00 | NUR ---
RN NOTES PT RETURNED FROM OR HD CATH PLACEMENT. CATH PLACED ON RIGHT CW. ORDERS RECEIVED AND EXECUTED. DIET REINSTATED. RECEIVED NOTIFICATION FROM HD NURSE THAT PT WILL HAVE HD PERFORMED TODAY, 02/05/18, IN THE EARLY AFTERNOON. WILL CONTINUE TO MONITOR.
[2018-02-05 10:24] LABS: BASOPHILS % (AUTO) 0.4 % (0.0-2.0); EOSINOPHILS % (AUTO) 22.1 % (0.0-6.0); HEMATOCRIT 30 % (39-51); HEMOGLOBIN 9.9 g/dL (13.5-17.5); LYMPHOCYTES # (AUTO) 1.3 /CMM (0.8-4.8); LYMPHOCYTES % (AUTO) 14.3 % (20.0-44.0); MEAN CORPUSCULAR HGB CONC 33 g/dl (31.0-36.0); MEAN CORPUSCULAR VOLUME 86 fL (80-96); MONOCYTES # (AUTO) 0.9 /CMM (0.1-1.30); MONOCYTES % (AUTO) 9.2 % (2.0-12.0); NEUTROPHILS # (AUTO) 5.1 /CMM (1.8-8.9); PLATELET COUNT (AUTO) 174 /CMM (150-450); RDW COEFFICIENT OF VARIATION 15.2 (11.5-15.0); RED BLOOD CELL COUNT(AUTO) 3.49 MIL/uL (4.5-6.0); WHITE BLOOD COUNT (AUTO) 9.4 K/uL (4.3-11.0)
[2018-02-05 10:40] LABS: CALCIUM, SERUM 7.6 mg/dL (8.5-10.1); CREATININE 5.2 mg/dL (0.6-1.3); MAGNESIUM 2.4 mg/dL (1.8-2.4); PHOSPHORUS 6.2 mg/dL (2.5-4.9); POTASSIUM 5.1 mmol/L (3.5-5.1)
[2018-02-05 10:54] LABS: EOSINOPHILS % (MANUAL) 13 % (0-4); LYMPHOCYTES % (MANUAL) 16 % (16-48); MONOCYTES % (MANUAL) 5 % (0-11.0); NEUTROPHILS % (MANUAL) 66 (42-76)
[2018-02-05] MEDS: ALPRAZOLAM 0.25 MG TABLET PO PRN (11:31)
[2018-02-05] MEDS: HYDROCODONE/APAP 10/325MG 1 EA TABLET PO PRN (11:39)
--- NOTE | 2018-02-05 13:03 | NUR ---
RN NOTES HD NURSE ARRIVED ONTO UNIT AND IS NOW BEDSIDE WITH PT PERFORMING DIALYSIS. WILL CONTINUE TO MONITOR.
[2018-02-05 16:09] VITALS: BP 128/94
--- NOTE | 2018-02-05 19:09 | NUR ---
RN CLOSING NOTES PT IN BED RESTING. NO S/S OF RESP DISTRESS OR SOB. NO C/O PAIN AT THIS TIME. PT RECEIVED HD TODAY WITH NO OUTPUT. PER MD NOTE, PT POSS D/C ON 02/06/18. ALL PT NEEDS ANTICIPATED AND MET. SAFETY MEASURES IN PLACE, CALL LIGHT IN REACH. WILL ENDORSE TO WAREHOUSE HANDLER FOR SRIDEVI.
[2018-02-05 20:00] VITALS: BP 109/72
--- NOTE | 2018-02-05 20:00 | NUR ---
RECIEVEDMR. RINCON IN BED ASLEEP RESP EVEN AND UNLABORED, SNORING. cONTACT iSOLATION NOTED NOT AWAKENED AT THIS TIME
[2018-02-05] MEDS: GABAPENTIN 100 MG CAPSULE PO SCH (21:34)
[2018-02-05 21:48] VITALS: BP 109/72
[2018-02-06] MEDS: ZOLPIDEM TARTRATE 5 MG TABLET PO PRN (00:22)
--- NOTE | 2018-02-06 05:18 | NUR ---
ENDING NOTES: ALERT AND ORIENTATED AND JOKING THROUGH THE SHIFT. C/O PAIN IN THE RIGHT HIP WHEN BEING TURNED AND REPOSITIONED. REFUSING MULTIPLE TIMES TO BE REPOSITIONED AND SUPPORTED WITH PILLLOWS, EXPLAINED TO HIM ABOUT PRESSURE SORES AND AIR GETTING TO HIS SKIN, ADAMENTLY CONTINUES TO BE TURNED. HE CAN ESCALATE TO ANGER EASILY. AMBIEN GIVEN PER HIS REQUISTE FOR SLEEP AND EFFECTIVE. HE ALLOWED THE NURSE TO PUT LOTION ON HIS ARMS AND LEGS AND FEET. NOTICED THE RIGHT LEG MORE SWOLLEN THEN THE LEFT. HE HAD A LARGE BROWN SOFT MUSHY BM INCONTINENT. MILLARD OUTPUT 250 ML THIS 12 HOURS. CALL LIGHT WITHIN HIS REACH AND BED ALARM ON FOR PATIENT'S SAFETY
--- NOTE | 2018-02-06 07:55 | NUR ---
RN OPENING NOTES RECEIVED PT. PT IS STABLE AND SLEEPING IN BED. NO S/S OF RESP DISTRESS OR SOB. PT DOES NOT APPEAR TO BEIN PAIN. IV ACCESS LOCATED ON LEFT FA 22G SL. PT IS S/P PERMACATH PLACEMENT AND HD ON 02/05/18. PT REFUSED AM LABS, WILL F/U WITH PT REGARDING COMPLIANCE. SAFETY MEASURES IN PLACE, CALL LIGHT WITHIN REACH, WILL CONTINUE TO MONITOR.
[2018-02-06 08:00] VITALS: BP 113/71
[2018-02-06] MEDS: POLYETHYLENE GLYCOL 3350 17 GM POWD.PACK PO SCH (08:42)
[2018-02-06] MEDS: NICOTINE PATCH (14MG) 14 MG PATCH.TD24 TD SCH (08:42)
[2018-02-06] MEDS: DOXYCYCLINE HYCLATE (100 MG) 100 MG TABLET PO SCH (08:43)
[2018-02-06] MEDS: HYDROCODONE/APAP 10/325MG 1 EA TABLET PO PRN (08:43)
[2018-02-06] MEDS: METHOCARBAMOL (500MG) 500 MG TABLET PO SCH ×2 (08:43→15:19)
[2018-02-06] MEDS: MULTIVITAMINS,THERAGRAN 1 UDTAB TABLET PO SCH (08:43)
[2018-02-06] MEDS: ALPRAZOLAM 0.25 MG TABLET PO PRN ×2 (08:43→15:19)
[2018-02-06] MEDS: LACTOBACILLUS RHAMNOSUS GG 1 EACH CAP.SPRINK PO SCH (08:43)
[2018-02-06] MEDS: PANTOPRAZOLE 40 MG TABLET.DR PO SCH (08:43)
[2018-02-06] MEDS: SEVELAMER CARBONATE 800 MG TABLET PO SCH ×2 (08:43→13:00)
[2018-02-06] MEDS: VIT B CMPLX 3/FA/VIT C/BIOTIN 1 TAB TABLET PO SCH (08:43)
[2018-02-06] MEDS: DOCUSATE SODIUM 100 MG CAPSULE PO SCH (08:43)
[2018-02-06] MEDS: MUPIROCIN OINT 2% 22 GM TUBE SCH (09:00)
[2018-02-06] MEDS: Z GUARD REMEDY 2 OZ OINT TP SCH (09:00)
[2018-02-06] MEDS: FENTANYL PF 100MCG/2ML AMPUL IV PRN ×2 (10:01→15:19)
[2018-02-06] MEDS: TRIAMCINOLONE ACETONIDE 0.1% CR 15 GM TUBE TP SCH ×2 (10:01→13:00)
[2018-02-06] MEDS ORDERED: TRIA80CR12 TP (10:44)
[2018-02-06] MEDS ORDERED: LACT1CAP72 PO (10:44)
[2018-02-06] MEDS ORDERED: ALLA266C2 TP (10:44)
[2018-02-06] MEDS ORDERED: MUPI22OI7 (10:44)
[2018-02-06] MEDS ORDERED: DOXY100T2 PO (10:44)
[2018-02-06 13:01] LABS: BASOPHILS % (AUTO) 0.3 % (0.0-2.0); EOSINOPHILS % (AUTO) 7.7 % (0.0-6.0); HEMATOCRIT 28 % (39-51); HEMOGLOBIN 9.4 g/dL (13.5-17.5); LYMPHOCYTES # (AUTO) 1.3 /CMM (0.8-4.8); LYMPHOCYTES % (AUTO) 15.1 % (20.0-44.0); MEAN CORPUSCULAR HGB CONC 33 g/dl (31.0-36.0); MEAN CORPUSCULAR VOLUME 86 fL (80-96); MONOCYTES # (AUTO) 0.9 /CMM (0.1-1.30); MONOCYTES % (AUTO) 10.2 % (2.0-12.0); NEUTROPHILS # (AUTO) 5.7 /CMM (1.8-8.9); NEUTROPHILS % (AUTO) 66.7 % (43.0-81.0); PLATELET COUNT (AUTO) 124 /CMM (150-450); RDW COEFFICIENT OF VARIATION 15.3 (11.5-15.0); RED BLOOD CELL COUNT(AUTO) 3.27 MIL/uL (4.5-6.0); WHITE BLOOD COUNT (AUTO) 8.5 K/uL (4.3-11.0)
[2018-02-06 13:10] LABS: CALCIUM, SERUM 7.9 mg/dL (8.5-10.1); CREATININE 4.8 mg/dL (0.6-1.3); MAGNESIUM 2.2 mg/dL (1.8-2.4); PHOSPHORUS 5.2 mg/dL (2.5-4.9)
--- NOTE | 2018-02-06 16:00 | NUR ---
DISCHARGE NOTE PT DISCHARGED TO [facility]. VSS, NO S/S OF RESP DISTRESS, PAIN MANAGED PHARMACOLOGICALLY. DISCHARGE TEACHING PERFORMED UTILIZING EXITCARE. PT VERBALIZES UNDERSTANDING. IV ACCESS AND ID BAND REMOVED. PT REFUSED REMOVAL OF FC, FC EMPTIED OF 220 ML OUTPUT. PT UNABLE TO SIGN D/C PAPERWORK, LICENSED STAFF ABLE TO COSIGN BELONGINGS LIST AND D/C SUMMARY. REPORT CALLED AND GIVEN TO ADM RN OF NANCY. PT REFUSED D/C PHOTOS OF SKIN, STATING PAIN UPON EXCESSIVE REPOSITIONING. PT LEFT HOSPITAL WITH [facility] IN AMBULANCE TRANSPORTATION.
--- NOTE | 2018-02-06 16:00 | NUR ---
RN NOTES POST-DATE: IVP FENTENYL WASTED FOR ORDERED PARTIAL DOSE, DOCUMENTATION VIA OMNICELL PERFORMED POST-DISCHARGE.
== END 2018-02-06 15:38 | DRG 314 ==
LOC: ER 10:44 → TELE1 12:23 → MEDSG1 01-30 15:54 → MED 02-03 01:53
PROVIDERS: ADMIT Nurse Practitioner Acute Care; ATTEND Nurse Practitioner Acute Care
PROC: 0W9G3ZZ Drainage of Peritoneal Cavity, Percutaneous Approach (ICD-10-PCS; 2018-01-30)
PROC: 5A1D70Z Performance of Urinary Filtration, Intermittent, Less than 6 Hours Per Day (ICD-10-PCS; 2018-01-31)
PROC: 05PYX3Z Removal of Infusion Device from Upper Vein, External Approach (ICD-10-PCS; principal; 2018-02-01)
PROC: 0SW9XJZ Revision of Synthetic Substitute in Right Hip Joint, External Approach (ICD-10-PCS; 2018-02-04)
PROC: 05HM33Z Insertion of Infusion Device into Right Internal Jugular Vein, Percutaneous Approach (ICD-10-PCS; 2018-02-05)
PROC: B513YZA Fluoroscopy of Right Jugular Veins using Other Contrast, Guidance (ICD-10-PCS; 2018-02-05)
PROC: 5A1D70Z Performance of Urinary Filtration, Intermittent, Less than 6 Hours Per Day (ICD-10-PCS; 2018-02-05)
DX: T82.7XXA Infection and inflammatory reaction due to other cardiac and vascular devices, implants and grafts, initial encounter (principal); A41.9 Sepsis, unspecified organism; I12.0 Hypertensive chronic kidney disease with stage 5 chronic kidney disease or end stage renal disease; L89.322 Pressure ulcer of left buttock, stage 2; L89.313 Pressure ulcer of right buttock, stage 3; E44.0 Moderate protein-calorie malnutrition; E11.22 Type 2 diabetes mellitus with diabetic chronic kidney disease; N18.6 End stage renal disease; E87.2 Acidosis; L03.115 Cellulitis of right lower limb; E87.1 Hypo-osmolality and hyponatremia; T84.020A Dislocation of internal right hip prosthesis, initial encounter; L03.116 Cellulitis of left lower limb; E88.09 Other disorders of plasma-protein metabolism, not elsewhere classified; K70.31 Alcoholic cirrhosis of liver with ascites; Y84.9 Medical procedure, unspecified as the cause of abnormal reaction of the patient, or of later complication, without mention of misadventure at the time of the procedure; Z99.2 Dependence on renal dialysis; J44.9 Chronic obstructive pulmonary disease, unspecified; Y79.2 Prosthetic and other implants, materials and accessory orthopedic devices associated with adverse incidents; B19.20 Unspecified viral hepatitis C without hepatic coma; E66.9 Obesity, unspecified; F17.210 Nicotine dependence, cigarettes, uncomplicated; Z79.4 Long term (current) use of insulin; Z88.0 Allergy status to penicillin; K80.20 Calculus of gallbladder without cholecystitis without obstruction; L20.9 Atopic dermatitis, unspecified; F19.11 Other psychoactive substance abuse, in remission; M62.50 Muscle wasting and atrophy, not elsewhere classified, unspecified site; Z22.322 Carrier or suspected carrier of Methicillin resistant Staphylococcus aureus; Z68.27 Body mass index [BMI] 27.0-27.9, adult; L30.4 Erythema intertrigo; Y83.8 Other surgical procedures as the cause of abnormal reaction of the patient, or of later complication, without mention of misadventure at the time of the procedure; Y92.129 Unspecified place in nursing home as the place of occurrence of the external cause; I95.3 Hypotension of hemodialysis; K72.90 Hepatic failure, unspecified without coma
CPT/HCPCS: 36415; 70450-TC; 71045-TC; 72170-TC; 73501; 76942-TC; 80048-TC; 80053-TC; 80061-TC; 80076-TC; 80170-TC; 80202-TC; 82140-TC; 82962-TC; 83605-TC; 83735-TC; 83880; 84100-TC; 84484-TC; 85025-TC; 85730-TC; 87040-TC; 87081-TC; 90935-TC; A4216; A4606; A6253; A6402; C1750; J0330; J1165; J1580; J1644; J1956; J2001; J2250; J2405; J2704; J3010; J3370; J3490; J7030; J7060; Q0163; Z7610

== ENCOUNTER 2018-02-12 12:52 | Emergency (ER) | payer MEDICARE, OTHER ==
[~2018-02-12] VITALS: Ht 185.4 cm; Wt 72.6 kg
[~2018-02-12 12:52] MED LIST changes: +ACET-868 PO; -ALBU2.5V11 MC; +ALLA266C2 TP; +ALPR0.255 PO; -ALPR2TAB2 PO; -BP MED; +CETI-102 PO; +DIPH25CA6 PO; +DIPH30CR TP; +DOCU-141 PO; +DOXY100T2 PO; +EPOE1VIA7 SQ; +FAMO20TA8 PO; +FOLI0.8T23 PO; +GABA-532 PO; -HYDR1TAB PO; +HYDR4TAB57 PO; +LACT10SO PO; +LACT1CAP72 PO; +MAG30ORA PO; -METH40TA PO; +MULT-24 PO; +MUPI22OI7; +NICO-676 TD; +POLY17PO4 PO; +SEVE800T8 PO; +TRIA80CR12 TP
--- NOTE | 2018-02-12 12:52 | NUR ---
STOMACHE FOR 2 WEEKS, DENIES N/V/D.
[2018-02-12 14:01] LABS: BASOPHILS # (AUTO) 0.1 /CMM (0.0-0.2); BASOPHILS % (AUTO) 0.9 % (0.0-2.0); HEMATOCRIT 30 % (39-51); HEMOGLOBIN 10.6 g/dL (13.5-17.5); LYMPHOCYTES # (AUTO) 1.2 /CMM (0.8-4.8); LYMPHOCYTES % (AUTO) 9.9 % (20.0-44.0); MEAN CORPUSCULAR HGB CONC 35 g/dl (31.0-36.0); MEAN CORPUSCULAR VOLUME 85 fL (80-96); MONOCYTES # (AUTO) 1.3 /CMM (0.1-1.30); MONOCYTES % (AUTO) 10.3 % (2.0-12.0); NEUTROPHILS # (AUTO) 9.3 /CMM (1.8-8.9); NEUTROPHILS % (AUTO) 73.9 % (43.0-81.0); PLATELET COUNT (AUTO) 181 /CMM (150-450); RDW COEFFICIENT OF VARIATION 14.2 (11.5-15.0); RED BLOOD CELL COUNT(AUTO) 3.54 MIL/uL (4.5-6.0); WHITE BLOOD COUNT (AUTO) 12.5 K/uL (4.3-11.0)
[2018-02-12 14:06] LABS: CALCIUM, SERUM 8.4 mg/dL (8.5-10.1); CREATININE 3.3 mg/dL (0.6-1.3); POTASSIUM 5.3 mmol/L (3.5-5.1)
[2018-02-12 14:12] LABS: ALBUMIN 2.2 g/dL (3.4-5.0); BILIRUBIN,TOTAL 0.9 mg/dL (0.2-1.0); TOTAL PROTEIN, SERUM 7.5 g/dL (6.4-8.2)
--- NOTE | 2018-02-12 14:18 | NUR ---
CONSENT SIGNED FOR US PARACENTESIS
--- NOTE | 2018-02-12 15:24 | NUR ---
UNABLE TO PERFORM PARACENTESIS INR STILL PENDING AT 1515
[2018-02-12 15:31] LABS: INR 1.16 (0.85-1.15)
--- NOTE | 2018-02-12 17:15 | NUR ---
ULTRASOUND GUIDED PARACENTESIS 11 BOTTLES
--- NOTE | 2018-02-12 17:39 | NUR ---
CALL FOR FOOD TRAY
--- NOTE | 2018-02-12 17:43 | NUR ---
Joesph watson in [facility] - 02/12/18 at 1744 by WALLY CALLED [facility] AND SPOKE WITH DISPATCHER NIKO TO ARRANGE A BLS TRANSPORT BACK TO HIS NURSING FACILITY. WAS
--- NOTE | 2018-02-12 17:44 | NUR ---
CALLED [facility] AND SPOKE WITH DISPATCHER NIKO TO ARRANGE A BLS TRANSPORT BACK TO HIS NURSING FACILITY. WAS GIVEN AN ETA OF 1930. TRIP #:[id number]
[2018-02-12 17:56] VITALS: BP 133/73
--- NOTE | 2018-02-12 18:00 | NUR ---
Patient discharged to home in stable condition. Written and verbal after care instructions given. Patient verbalizes understanding of instruction.
--- NOTE | 2018-02-12 20:34 | NUR ---
REPORT GIVEN TO EMT STAFF AMBULNZ. Patient discharged to home in stable condition. Written and verbal after care instructions given. Patient verbalizes understanding of instruction.
--- NOTE | 2018-02-12 20:34 | NUR ---
BP 116/58; HR 78; RR 20; O2 99%
== END 2018-02-12 20:36 | disposition home or self-care (01) ==
LOC: ER 12:56
DX: R18.8 Other ascites (principal); K74.60 Unspecified cirrhosis of liver; Z88.0 Allergy status to penicillin; Z88.1 Allergy status to other antibiotic agents; F17.200 Nicotine dependence, unspecified, uncomplicated; I10 Essential (primary) hypertension; Z98.890 Other specified postprocedural states
CPT/HCPCS: 36415; 76942-TC; 80053-TC; 85025-TC; 85730-TC; A4606; Z7610

== ENCOUNTER 2018-03-02 14:34 | Emergency (ER) | payer MEDICARE, OTHER ==
[~2018-03-02] VITALS: Ht 185.4 cm; Wt 104.3 kg
--- NOTE | 2018-03-02 14:55 | NUR ---
PT PRESENTED TO THE ER FOR A PARACENTISIS. PT WAS HERE 2 WKS AGO FOR THE SAME THING. PT IS IN A WHEELCHAIR. PT IS AA&O X3. RESP EVEN AND UNLABORED. ABD DISTENTION NOTED.
[2018-03-02] MEDS ORDERED: LIDOCAINE HCL/MPF 1% 30 ML VIAL IJ ONE (15:04)
--- NOTE | 2018-03-02 16:35 | NUR ---
PARACENTISIS DONE BY DR. MEDINA UNDER STERILE PROCEDURES.
--- NOTE | 2018-03-02 17:28 | NUR ---
6400ML TAKEN OFF DURING PARACENTESIS. PARACENTESIS CATH REMOVED AND AREA COVERED WITH 4X4'S AND TAPE.
--- NOTE | 2018-03-02 17:29 | NUR ---
Patient discharged to home in stable condition. Written and verbal after care instructions given. Patient verbalizes understanding of instruction. PT LEFT VIA WC TO THE LOBBY VSS. NAD NOTED.
[2018-03-02 17:38] VITALS: BP 137/88
== END 2018-03-02 17:29 | disposition home or self-care (01) ==
LOC: ER 14:38
DX: R18.8 Other ascites (principal); K74.60 Unspecified cirrhosis of liver; R10.84 Generalized abdominal pain; I10 Essential (primary) hypertension; F17.200 Nicotine dependence, unspecified, uncomplicated; Z96.641 Presence of right artificial hip joint; Z88.0 Allergy status to penicillin; Z88.1 Allergy status to other antibiotic agents
CPT/HCPCS: 36415; 49083; 87070-TC; 87075-TC; 89051-TC; A4606; A6402; J3490; Z7610

== ENCOUNTER 2018-03-09 10:39 | Outpatient (CLI) | payer MEDICARE, OTHER | END 2018-03-09 23:59 | disposition home or self-care (01) | LOC: US 10:39 | PROVIDERS: ATTEND Internal Medicine Nephrology | DX: R18.8 Other ascites (principal); K74.60 Unspecified cirrhosis of liver | CPT/HCPCS: 76942-TC ==

== ENCOUNTER 2018-03-18 11:09 | Outpatient (CLI) | payer MEDICARE, OTHER ==
[2018-03-18 13:22] LABS: INR 1.1 (0.87-1.13)
== END 2018-03-18 23:59 | disposition home or self-care (01) ==
LOC: US 11:09
PROVIDERS: ATTEND Internal Medicine Nephrology
DX: K74.60 Unspecified cirrhosis of liver (principal); R18.8 Other ascites
CPT/HCPCS: 36415; 76942-TC; 85730-TC

== ENCOUNTER 2018-03-23 11:40 | Outpatient (CLI) | payer MEDICARE, OTHER | END 2018-03-23 23:59 | disposition home or self-care (01) | LOC: US 11:40 | PROVIDERS: ATTEND Internal Medicine Nephrology | DX: K74.60 Unspecified cirrhosis of liver (principal); R18.8 Other ascites | CPT/HCPCS: 76942-TC ==

== ENCOUNTER 2018-03-30 10:01 | Outpatient (CLI) | payer MEDICARE, OTHER | END 2018-03-30 23:59 | disposition home or self-care (01) | LOC: US 10:01 | PROVIDERS: ATTEND Internal Medicine Nephrology | DX: K74.60 Unspecified cirrhosis of liver (principal); R18.8 Other ascites | CPT/HCPCS: 76942-TC ==

== ENCOUNTER 2018-04-06 10:48 | Outpatient (CLI) | payer MEDICARE, OTHER ==
[2018-04-06] MEDS ORDERED: LIDOCAINE HCL/PF 1% 30 ML SDV ONE (10:52)
== END 2018-04-06 23:59 | disposition home or self-care (01) ==
LOC: US 10:48
PROVIDERS: ATTEND Internal Medicine Nephrology
DX: R18.8 Other ascites (principal)
CPT/HCPCS: 76942-TC; J3490

== ENCOUNTER 2018-04-13 10:16 | Outpatient (CLI) | payer MEDICARE, OTHER | END 2018-04-13 23:59 | disposition home or self-care (01) | LOC: US 10:16 | PROVIDERS: ATTEND Internal Medicine Nephrology | DX: K74.60 Unspecified cirrhosis of liver (principal); R18.8 Other ascites | CPT/HCPCS: 76942-TC ==

== ENCOUNTER 2018-04-20 10:25 | Outpatient (CLI) | payer MEDICARE, OTHER | END 2018-04-20 23:59 | disposition home or self-care (01) | LOC: US 10:25 | PROVIDERS: ATTEND Internal Medicine Nephrology | DX: K70.31 Alcoholic cirrhosis of liver with ascites (principal); I12.9 Hypertensive chronic kidney disease with stage 1 through stage 4 chronic kidney disease, or unspecified chronic kidney disease; N18.9 Chronic kidney disease, unspecified; B17.10 Acute hepatitis C without hepatic coma; J44.9 Chronic obstructive pulmonary disease, unspecified; J96.01 Acute respiratory failure with hypoxia; F10.10 Alcohol abuse, uncomplicated; N31.9 Neuromuscular dysfunction of bladder, unspecified; E66.9 Obesity, unspecified; L89.150 Pressure ulcer of sacral region, unstageable; T84.020D Dislocation of internal right hip prosthesis, subsequent encounter; Z72.0 Tobacco use; Z99.2 Dependence on renal dialysis | CPT/HCPCS: 76942-TC ==

== ENCOUNTER → 2018-04-24 | Outpatient (CLI) | payer MEDICARE, OTHER | END | disposition home or self-care (01) | LOC: US 14:21 | PROVIDERS: ATTEND Internal Medicine Nephrology | DX: R18.8 Other ascites (principal) | CPT/HCPCS: 76942-TC ==